=== PATIENT | male | born 1960 | race Caucasian/White ===

== ENCOUNTER → 2018-10-14 | Outpatient (CLI) | payer OTHER | LOC: FIMAGING 08:18 | PROVIDERS: ATTEND Orthopaedic Surgery | DX: M17.11 Unilateral primary osteoarthritis, right knee (principal) ==

== ENCOUNTER 2018-10-29 09:45 | Observation (INO) | payer OTHER ==
--- NOTE | 2018-10-28 14:26 | GHP ---
[f rep st] PREOP HISTORY AND PHYSICAL DATE OF ADMISSION: 10/29/2018 ADMISSION DIAGNOSIS: Osteoarthritis right knee. PLANNED PROCEDURE: Right total knee arthroplasty with Hans assist. HISTORY OF PRESENT ILLNESS: The patient is a very pleasant 58-year-old male with ongoing right knee pain and moderate to severe tricompartment osteoarthritis. He has failed conservative management. D ecision made to proceed with a right total knee arthroplasty. PRIOR MEDICAL HISTORY: None. PRIOR SURGICAL HISTORY: None. MEDICATIONS: None. ALLERGIES: None. 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 Never smoker. No alcohol intake. REVIEW OF SYSTEMS: No shortness of breath or chest pain. Otherwise, review of systems unremarkable. PHYSICAL EXAM: VITAL SIGNS: He is 5 feet and 10 inches tall, weighs 200 pounds. Blood pressure is 121/69, heart rate 65, respiratory rate 14 on room air. GENERAL: Alert and oriented x3. HEENT: No rmocephalic, atraumatic. Extraocular muscles intact. NECK: Supple. There is no lymphadenopathy. No JVD. CHEST: Clear to auscultation. CARDIOVASCULAR: Regular rate and rhythm. ABDOMEN: Soft, n ontender, nondistended. EXTREMITIES: Focusing on the knee, he has a mild varus alignment which is p assively correctable to straight, lacks about 10 degrees of full extension. Flexes to 130 degrees. He has a 1+ Edmar with a firm endpoint. Negative posterior drawer. The knee is otherwise stable t o varus and valgus stress testing. Calf is soft. 2+ dorsalis pedis posterior tibial pulses. IMAGING: X-rays: 3 views of the knee show moderate to severe tricompartment osteoarthritis with kenny us malalignment, worse in the medial and patellofemoral compartments. ASSESSMENT: Moderate to severe tricompartment osteoarthritis. PLAN: I recommend proceeding with a total knee arthroplasty. We will use Hans assist and use press- fit prosthesis. Risks and benefits including possible need for revision surgery in the future, blood clots, infection were all discussed. The patient understands these risks wishes to proceed. Bar maldonado plan on surgery Sunday at the hospital. /[id number]/MODL
[2018-10-29] MEDS ORDERED: ceFAZolin 2 GM/DEXTROSE 100 ML IV ONE (12:55)
[2018-10-29] MEDS ORDERED: LR 1,000 ML IV ONE (12:55)
[2018-10-29] MEDS ORDERED: CALCIUM CHLORIDE 1 GM/10 ML INJ ONE (13:14)
[2018-10-29] MEDS ORDERED: ceFAZolin 1 GM/5 ML SYR ONE ×2 (13:14→17:29)
[2018-10-29] MEDS ORDERED: THROMBIN (BOVINE) 5,000 UNIT VIAL TP ONE (13:14)
--- NOTE | 2018-10-29 16:23 | PDANEPAE ---
ANE History of Present Illness Right TKA ANE Past Medical History - Cardiovascular History Hx Hypertension: No Hx Arrhythmias: No Hx Chest Pain: No Hx Coronary Artery / Peripheral Vascular Disease: No Hx CHF / Valvular Disease: No Hx Palpitations: No - Pulmonary History Hx COPD: No Hx Asthma/Reactive Airway Disease: No Hx Recent Upper Respiratory Infection: No Hx Oxygen in Use at Home: No Hx Sleep Apnea: No Sleep Apnea Screening Result - Last Documented: Negative - Neurologic History Hx Cerebrovascular Accident: No Hx Seizures: No Hx Dementia: No - Endocrine History Hx Diabetes: No - Renal History Hx Renal Disorders: No - Liver History Hx Hepatic Disorders: No - Neurological & Psychiatric Hx Hx Neurological and Psychiatric Disorders: No - Cancer History Hx Cancer: No - Congenital Disorder History Hx Congenital Disorders: No - GI History Hx Gastrointestinal Disorders: No - Other Health History Other Health History: OSTEOARTHRITIS - Chronic Pain History Chronic Pain: Yes (RT KNEE) - Surgical History Prior Surgeries: EPIGASTRIC HERNIA. ARACELIS ING HERNIA ANE Review of Systems Review of Systems: - Exercise capacity METS (RN): 4 METS ANE Patient History - Allergies Allergies/Adverse Reactions: No Known Allergies Allergy (Verified 10/08/18 13:40) - Home Medications Home Medications: Multivitamins [Multivitamin (*)] 1 each PO DAILY 10/08/18 [Last Taken 1 Week Ago ~10/22/18] [place]-3 Fatty Acids [Fish Oil 1000 mg (*)] 1,000 mg PO DAILY 10/08/18 [Last Taken 1 Week Ago ~10/22/18] - NPO status NPO Since - Liquids (Date): 10/29/18 NPO Since - Liquids (Time): 09:00 NPO Since - Solids (Date): 10/28/18 NPO Since - Solids (Time): 19:00 - Anes Hx Anes Hx: no prior problems - Smoking Hx Smoking Status: Never smoked - Family Anes Hx Family Hx Anesthesia Complications: NEG ANE Labs/Vital Signs - Vital Signs Blood Pressure: 121/89 Heart Rate: 77 Respiratory Rate: 16 O2 Sat (%): 96 Height: 177.8 cm Weight: 90.718 kg ANE Physical Exam - Airway Neck exam: FROM Mallampati Score: Class 2 Mouth exam: normal dental/mouth exam - Pulmonary Pulmonary: no respiratory distress - Cardiovascular Cardiovascular: regular rate and rhythym - ASA Status ASA Status: I ANE Anesthesia Plan Anesthesia Plan: MAC, spinal Regional Anesthesia: adductor canal FNB
[2018-10-29] MEDS ORDERED: BUPIVACAINE/EPI 0.5% 30 ML SDV ONE (16:29)
--- NOTE | 2018-10-29 16:31 | PDHPUP ---
History & Physical Update H&P update statement: This history and physical update is based on an assessment of the patient which was completed after admission or registration (within 24 hours), but prior to the surgery/procedure. H&P update: H&P reviewed & patient examined, no change in patient's condition since H&P completed
[2018-10-29] MEDS ORDERED: MIDAZOLAM 2 MG/2 ML VIAL IVP ONE (16:32)
[2018-10-29] MEDS ORDERED: PROPOFOL/EMULSION 500 MG/50 ML BOTTLE IV ONE ×2 (16:39→18:00)
[2018-10-29] MEDS ORDERED: PROPOFOL 200 MG/20 ML VIAL ONE ×2 (16:39→18:52)
[2018-10-29] MEDS ORDERED: LIDOCAINE 2% 5 ML SDV ONE (16:40)
[2018-10-29] MEDS ORDERED: BUPIVACAINE/DEXTROSE 7.5MG/ML 2 ML SPINAL AMP SP ONE (16:43)
[2018-10-29] MEDS ORDERED: fentaNYL 100 MCG/2 ML INJ ONE ×3 (17:27→19:22)
[2018-10-29] MEDS ORDERED: HYDROmorphONE/DILAUDID 1 MG/ML INJ IVP PRN (17:59)
[2018-10-29] MEDS ORDERED: ONDANSETRON 4 MG/2 ML VIAL IVP PRN ×2 (17:59→18:59)
[2018-10-29] MEDS ORDERED: NALOXONE HCL 0.4 MG/ML INJ IVP PRN (17:59)
[2018-10-29] MEDS ORDERED: ROPIVACAINE HCL 150 MG/30 ML INJ ONE (18:00)
[2018-10-29] MEDS ORDERED: diphenhydrAMINE 25 MG CAP PO PRN (18:59)
[2018-10-29] MEDS ORDERED: PROMETHAZINE HCL 25 MG/ML INJ IVP PRN (18:59)
[2018-10-29] MEDS ORDERED: PROMETHAZINE HCL 25 MG SUPPR PR PRN (18:59)
[2018-10-29] MEDS ORDERED: MAGNESIUM HYDROXIDE 30 ML UDCUP PO PRN (18:59)
[2018-10-29] MEDS ORDERED: DIPHENOXYLATE/ATROPINE LOMOTIL 1 TAB PO PRN (18:59)
[2018-10-29] MEDS ORDERED: TEMAZEPAM 15 MG CAP PO PRN (18:59)
[2018-10-29] MEDS ORDERED: METOCLOPRAMIDE 10 MG/2 ML VIAL IVP PRN (18:59)
[2018-10-29] MEDS ORDERED: ONDANSETRON DISINTEGRATING 4 MG TAB PO PRN (18:59)
[2018-10-29] MEDS ORDERED: CYCLOBENZAPRINE 10 MG TAB PO PRN (18:59)
[2018-10-29] MEDS ORDERED: BISACODYL 10 MG SUPP PR PRN (18:59)
[2018-10-29] MEDS ORDERED: POLYETHYLENE GLYCOL 3350 17 GM PKT PO PRN (18:59)
[2018-10-29] MEDS ORDERED: oxyCODONE IR 5 MG TAB PO PRN (18:59)
[2018-10-29] MEDS ORDERED: LACTULOSE 20 GM/30 ML UDCUP PO PRN (18:59)
--- NOTE | 2018-10-29 18:59 | POSTOPPROG ---
Post Op Note Date of Operation: 10/29/18 Surgeon: Mahad Contreras Patient Service Representative: luana smith Anesthesiologist: Herbert Anesthesia: Spinal Pre-op Diagnosis: OA RT knee Post-op Diagnosis: same Procedure: RT TKA with Hans assist Findings: severe med/PF OA, varus deformity Inf/Abcess present in the surg proc area at time of surgery?: No EBL: 50-100 Complications: none Bowel Protocol: Yes Clean Closure Performed: Yes
[2018-10-29] MEDS ORDERED: LR 1,000 ML IV SCH (19:00)
[2018-10-29] MEDS: fentaNYL 100 MCG/2 ML INJ IVP PRN ×2 (19:38→19:51)
--- NOTE | 2018-10-29 19:46 | GOP ---
[f rep st] OPERATIVE REPORT DATE OF OPERATION: 10/29/2018 SURGEON: Mahad Contreras MD HEADLIGHT ASSEMBLER: Nacho Landa, PAC ANESTHESIA: Spinal with an adductor canal block. ANESTHESIOLOGIST: Dr. Godinez. PREOPERATIVE DIAGNOSIS: Right knee osteoarthritis. POSTOPERATIVE DIAGNOSIS: Right knee osteoarthritis. PROCEDURE PERFORMED: Right total knee arthroplasty with Hans assist. FINDINGS: DESCRIPTION OF PROCEDURE: After appropriate informed consent was obtained, the patient was taken to the operating room, placed supine on the operating table. Time-out was performed. The patient was salomon ntified, correct site was identified, matched with the radiographs that were available in the room. He received 2 g of Ancef preoperatively. Dr. Godinez administered a spinal anesthetic. He was then positioned on the OR table with all bony prominences well padded. Right lower extremity was pre pped and draped in usual sterile fashion. I exsanguinated the limb, inflated the tourniquet to 250 m mHg. I made a standard midline incision with a medial parapatellar arthrotomy. Patella was everted. Remaining medial and lateral meniscus was removed as well as the ACL. We then placed our guide pin s in our femur and our tibia for tibial and femoral array, placed our check point in our femur and ou r tibia. We then determined our hip center and then corrected our data points on both the femur and the tibia. Using the You[employer] assist robot, we then made our femoral cuts followed by our tibial cut. W e then trialed the tibia. This was a size 6 with a 9 mm poly, and a 7 femur, drilled our lug holes o n the femur. We used our keel punch and punched our keel and then our 4 hole tibial drill guide was used to drill our tibia. We then irrigated the wound with pulsatile lavage, press-fit our tibia foll owed by our femur, snapped our [address] We then turned our attention to the patella. It measured 24 mm thick. I resected 10 mm off without using a freehand technique. This sized to a size 38, drilled our lug holes and press-fit our patella after we had irrigated the bone. He had good ex tension with good medial and lateral stability, 90 degrees of flexion with good stability. Patella t racked centrally. Wound was irrigated a final time. The extensor mechanism was closed with 0 Vicryl , superficial layers closed with 2-0 Vicryl. I instilled 10 mL of PRP on the extensor tendon repair a s well as the cut bone surfaces. I instilled 20 mL of 0.5% Marcaine with epinephrine into the knee j oint. The skin was closed with a subcuticular Quill stitch. Steri-Strips and a sterile dressing wer e applied. Patient was awakened from anesthesia and taken to the recovery in satisfactory condition. There were no immediate intraoperative complications. Nacho Landa's assistance was required t hroughout the entire case. IMPLANTS USED: A Tonja cruciate-retaining size 7 femur, a size 6 press-fit tibia, 9 mm poly and a 38 mm asymmetric press-fit patella. COMPLICATIONS: None. DRAINS: None. HISTORY: The patient is a 58-year-old male with slowly worsening knee pain, varus deformity, failed conservative management. Decision was made to proceed with total knee arthroplasty. /[id number]/MODL
[2018-10-29] MEDS: ASPIRIN 325 MG TAB PO SCH (22:34)
[2018-10-29] MEDS: FAMOTIDINE 20 MG TAB PO SCH (22:35)
[2018-10-29] MEDS: SENNOSIDES/DOCUSATE SODIUM TAB PO SCH (22:37)
[2018-10-30] MEDS: ceFAZolin 2 GM/DEXTROSE 100 ML IV SCH ×2 (00:12→09:40)
[2018-10-30] MEDS: ACETAMINOPHEN 325 MG TAB PO SCH ×2 (00:12→06:13)
[2018-10-30] MEDS: KETOROLAC 15 MG/1 ML SDV IVP SCH ×3 (00:13→13:08)
--- NOTE | 2018-10-30 08:32 | SOAPPROG ---
SOAP Progress Note Assessment/Plan: Assessment: s/p right TKA with Hans assist - POD [address] Contreras Anemia - expected initially post-op. Asymptomatic, continue to monitor. Plan: Continue d/c planning - home today. Need clearance from PT/OT prior to d/c Continue VTE ppx - aspirin 325 mg once daily x 2 weeks, MEY hose x 10 days Continue oral pain medication - has prescription for Percocet and Flexeril electronically sent to his pharmacy Change dressing this morning to Mepilex. Continue to cover Mepilex while showering Continue PT/OT efforts - WBAT with assistance until cleared by PT, ROM as tolerated Subjective: Patient states he is doing well, pain is being controlled with oral pain medication. He reports feeling well enough to go home today. He will have the support of his . Patient denies SOB, CP, fever, chills, nausea. States his toes still feel a bit tingly. Objective: Vital Signs Temp Pulse Resp BP Pulse Ox 36.9 C 96 18 122/80 H 93 10/30/18 08:00 10/30/18 08:00 10/30/18 08:00 10/30/18 08:00 10/30/18 08:00 Laboratory Results 10/30/18 05:17 10/29/18 10/30/18 10/31/18 05:59 05:59 05:59 Intake Total 3055 Output Total 675 Balance 2380 Patient resting in bed, no acute distress. RLE: Surgical wound dressings are clean, dry and intact. Moderate edema about the knee and distal thigh. Lower leg compartments are soft and nontender. Negative Homans sign bilaterally. He can actively DF and PF his right foot and great toe against resistance. Grossly NVI distally. ICD10 Worksheet Patient Problems: Problems Problem Status Onset Unilateral primary osteoarthritis, right knee Acute
--- NOTE | 2018-10-30 08:50 | PDDCSUM ---
Discharge Summary Discharge Summary: ADMISSION DIAGNOSIS: Right knee severe degenerative arthritis DISCHARGE DIAGNOSIS: Right knee severe degenerative arthritis OPERATION PERFORMED: October 29, 2018, Right total knee arthroplasty, Hans robot assisted. POSTOPERATIVE COMPLICATIONS: None CONDITION ON DISCHARGE: Improved HPI: The patient is a 58 year old male who has end-stage arthritis of his right knee. Clinical and radiographic features are consistent with this. Patient has failed attempts at conservative management, therefore, recommended operative right total knee replacement. DESCRIPTION OF HOSPITAL COURSE: The patient was admitted to the hospital on the morning of surgery and underwent a right total knee arthroplasty, Hans robot assisted. Postoperatively, patient was treated with multimodal DVT prophylaxis, including aspirin and SCDs. Patient was seen by PT and made good progress with ambulation and stairs. Patient progressed better than expected. On the first post-operative day the patients H&H was 12.3/35.4. Patient was able to void spontaneously. At the time of discharge, patient was afebrile, wound was clean and dry. Patient is walking with a walker. DISPOSITION: The patient is discharged home and will have outpatient PT in the next 1-2 weeks. Patient may progress to full weightbearing on the right lower extremity as tolerated. Aspirin 325 mg once daily for 2 weeks. Patient has prescriptions for Percocet for pain control and Flexeril was electronically sent to his pharmacy. The patient will be seen by Dr. Jimenez office in approximately 2 weeks. If there are any problems, patient is to call Dr. Contreras's office.
[2018-10-30] MEDS: ASPIRIN 325 MG TAB PO SCH (09:38)
[2018-10-30] MEDS: OXYCODONE/APAP 5/325 TAB PO PRN ×2 (09:39→13:04)
[2018-10-30] MEDS: FAMOTIDINE 20 MG TAB PO SCH (09:39)
[2018-10-30] MEDS: SENNOSIDES/DOCUSATE SODIUM TAB PO SCH (09:39)
[2018-10-30 11:27] VITALS: BP 93/47
--- NOTE | 2018-10-30 11:54 | ASMTLACE ---
ARIANNE Length of stay for Answers: 2 days current admission Acuity / Level of Answers: Yes Care: Did the patient have an inpatient admission? # of Emergency department Answers: 0 visits in the last 6 months Score: 5 Date Signed: 10/30/2018 11:53 AM Electronically Signed By:COLT Martinez
--- NOTE | 2018-10-30 16:48 | ASMTCMCOM ---
CM Note CM Note Notes: Pt had planned ortho surgery, resides with . PT and MD rec outpatient PT. No CM d/c needs identified. Date Signed: 10/30/2018 04:47 PM Electronically Signed By:COLT Martinez
== END 2018-10-30 13:42 | disposition home or self-care (01) ==
LOC: F3N 12:31
PROVIDERS: ADMIT Orthopaedic Surgery; ATTEND Orthopaedic Surgery
DX: M17.11 Unilateral primary osteoarthritis, right knee (principal)
CPT/HCPCS: 27447; 73560; 97161; 97165; G0378; J0690; J1885; J2250; J2704; J2795; J3010